=== PATIENT | female | born 1970 | race Caucasian/White ===

== ENCOUNTER → 2016-11-08 | Outpatient (CLI) | payer BC ==
[2016-11-08 08:40] LABS: HEMATOCRIT 44.1 % (36.0-47.0); HEMOGLOBIN 14.7 g/dL (12.0-15.5); MEAN CORPUSCULAR HEMOGLOBIN 28.2 pg (27.0-33.4); MEAN CORPUSCULAR HGB CONC 33.4 g/dL (32.0-36.0); MEAN CORPUSCULAR VOLUME 84 fl (80-97); RED BLOOD COUNT 5.23 10^6/uL (3.72-5.28); RED CELL DISTRIBUTION WIDTH 12.5 % (11.5-14.0); WHITE BLOOD COUNT 7.4 10^3/uL (4.0-10.5)
[2016-11-08 09:24] LABS: ALANINE AMINOTRANSFERASE 38 U/L (9-52); ALBUMIN 4.6 g/dL (3.5-5.0); ALKALINE PHOSPHATASE 76 U/L (38-126); ANION GAP 11 (5-19); ASPARTATE AMINO TRANSFERASE 25 U/L (14-36); BILIRUBIN,TOTAL 1.3 mg/dL (0.2-1.3); BLOOD UREA NITROGEN 14 mg/dL (7-20); CARBON DIOXIDE 27 mmol/L (22-30); CHLORIDE 104 mmol/L (98-107); CHOLESTEROL 241.75 mg/dL (0-200); CREATININE RESULT 0.79 mg/dL (0.52-1.25); Direct HDL 40 mg/dL (>40); GLUCOSE 99 mg/dL (75-110); POTASSIUM 4.6 mmol/L (3.6-5.0); SODIUM 142.4 mmol/L (137-145); TOTAL PROTEIN 7.8 g/dL (6.3-8.2); TRIGLYCERIDES 179 mg/dL (<150)
[2016-11-08 09:35] LABS: DIRECT LDL 156 mg/dL (<100)
[2016-11-08 09:39] LABS: VLDL CHOLESTEROL 35.8 mg/dL (10-31)
[2016-11-08 09:59] LABS: THYROID STIMULATING HORMONE 2.35 uIU/mL (0.47-4.68)
[2016-11-09 07:21] LABS: VITAMIN D 25-HYDROXY 16.2 ng/mL (30.0-100.0)
[2016-11-09 13:13] LABS: INSULIN 24.2 uIU/mL (2.6-24.9)
== END ==
LOC: LAB 08:19
PROVIDERS: ATTEND Nurse Practitioner Community Health
DX: Z00.00 Encounter for general adult medical examination without abnormal findings (principal); E55.9 Vitamin D deficiency, unspecified; R53.83 Other fatigue; E78.5 Hyperlipidemia, unspecified; R63.5 Abnormal weight gain
CPT/HCPCS: 36415; 80053; 80061; 82306; 83036; 83525; 84439; 84443; 85027

== ENCOUNTER → 2017-01-21 | Outpatient (CLI) | payer BC | LOC: RAD 11:11 | PROVIDERS: ATTEND Podiatrist Foot & Ankle Surgery | DX: M20.12 Hallux valgus (acquired), left foot (principal) ==

== ENCOUNTER → 2017-02-26 | Outpatient (CLI) | payer BC | LOC: LAB 12:42 | PROVIDERS: ATTEND Podiatrist Foot & Ankle Surgery | DX: E55.9 Vitamin D deficiency, unspecified (principal) | CPT/HCPCS: 36415; 82306 ==

== ENCOUNTER 2017-03-28 09:47 | Day surgery (SDC) | payer BC ==
[2017-03-27 17:17] LABS: APPEARANCE,URINE SLIGHTLY-CLOUDY; BILIRUBIN,URINE NEGATIVE (NEGATIVE); GLUCOSE, URINE NEGATIVE (NEGATIVE); KETONES,URINE NEGATIVE (NEGATIVE); LEUKOCYTE ESTERASE,URINE NEGATIVE (NEGATIVE); NITRITE,URINE NEGATIVE (NEGATIVE); PROTEIN,URINE NEGATIVE (NEGATIVE); URINE SPECIFIC GRAVITY 1.013; UROBILINOGEN,URINE NEGATIVE mg/dL (<2.0)
[2017-03-27 17:25] LABS: ABSOLUTE BASOPHILS # (AUTO) 0.1 10^3/uL (0.0-0.2); ABSOLUTE EOSINOPHILS # (AUTO) 0.2 10^3/uL (0.0-0.6); ABSOLUTE MONOCYTES (AUTO) 0.8 10^3/uL (0.1-1.4); ABSOLUTE NEUT (AUTO) 5.2 10^3/uL (1.7-8.2); EOSINOPHILS % (AUTO) 2.3 % (0-6); HEMATOCRIT 45.8 % (36.0-47.0); HEMOGLOBIN 15.3 g/dL (12.0-15.5); HGB HCT DIFFERENCE 0.1; LYMPHOCYTES % (AUTO) 38.8 % (13-45); MEAN CORPUSCULAR HGB CONC 33.4 g/dL (32.0-36.0); MEAN CORPUSCULAR VOLUME 84 fl (80-97); MONOCYTES % (AUTO) 7.4 % (3-13); RED BLOOD COUNT 5.47 10^6/uL (3.72-5.28); RED CELL DISTRIBUTION WIDTH 12.7 % (11.5-14.0); SEGMENTED NEUTROPHILS % (AUTO) 50.5 % (42-78); WHITE BLOOD COUNT 10.3 10^3/uL (4.0-10.5)
[~2017-03-28 09:47] MED LIST: CEFAZOLIN 1 GM/D5W RTU 1 GM/50 ML RTUPB IV PRN; RINGERS SOLUTION,LACTATED 1,000 ML IV PRN
[2017-03-28] MEDS ORDERED: FENTANYL CITRATE INJ/PF 100 MCG/2 ML AMPUL ONE (10:23)
[2017-03-28] MEDS ORDERED: MIDAZOLAM 2 MG/2 ML INJ ONE ×2 (10:23)
[2017-03-28] MEDS ORDERED: PROPOFOL INJ 200 MG/20 ML VIAL IV ONE (10:24)
[2017-03-28] MEDS ORDERED: LIDOCAINE 2% INJ (20 MG/ML) 20 ML MDV ONE (10:27)
[2017-03-28] MEDS ORDERED: BUPIVACAINE HCL 0.5 % INJ/PF 30 ML SDV ONE (10:28)
[2017-03-28] MEDS ORDERED: ONDANSETRON HCL INJ/PF 4 MG/2 ML SDV ONE (11:21)
[2017-03-28] MEDS ORDERED: DEXAMETHASONE SOD PHOSPHATE INJ 4 MG/1 ML VIAL ONE (11:21)
[2017-03-28] MEDS ORDERED: SUCCINYLCHOLINE CHLORIDE INJ 200 MG/10 ML VIAL ONE (13:06)
[2017-03-28] MEDS ORDERED: METOCLOPRAMIDE HCL INJ/PF 10 MG/2 ML SDV ONE (13:06)
[2017-03-28] MEDS ORDERED: KETOROLAC TROMETHAMINE 60 MG/2 ML SDV ONE (13:21)
--- NOTE | 2017-03-28 16:37 | RADIOLOGY REPORT (SQ) ---
EXAM DESCRIPTION: FOOT LEFT 2 VIEWS COMPLETED DATE/TIME: 03/28/2017 2:21 pm REASON FOR STUDY: LT FOOT OPEN WEDGE BASE OF 1ST M20.12 HALLUX VALGUS (ACQUIRED), LEFT FOOT COMPARISON: None. FLUOROSCOPY TIME: 0.03 seconds 2 images saved to PACS. TECHNIQUE: Intra-operative images acquired during surgical procedure to evaluate progress. NUMBER OF IMAGES: 2 0 LIMITATIONS: None. FINDINGS: Fluoroscopic images were obtained during osteotomy related to a hallux valgus. An orthope dic hardware is identified at the level of the 1st metatarsal. IMPRESSION: IMAGE(S) OBTAINED DURING PROCEDURE. COMMENT: Quality ID [id number]: Final reports for procedures using fluoroscopy that document radiation exp osure indices, or exposure time and number of fluorographic images (if radiation exposure indices are not available) Please consult full operative report of the attending physician for description of the procedure. TECHNICAL DOCUMENTATION: JOB ID: [id number] [email or web address] All Rights Reserved
--- NOTE | 2017-03-28 16:38 | RADIOLOGY REPORT (SQ) ---
EXAM DESCRIPTION: NO CHG FLUORO COMPLETE DATE/TIME: 03/28/2017 2:21 pm REASON FOR STUDY: LT FOOT OPEN WEDGE BASE OF 1ST M20.12 HALLUX VALGUS (ACQUIRED), LEFT FOOT FINDINGS: Please see combined report for performance of procedure and radiologic supervision and int erpretation. IMPRESSION: Please see combined report for performance of procedure and radiologic supervision and i nterpretation.
--- NOTE | 2017-04-30 15:45 | [facility] OPERATIVE REPORT E ---
[facility] Operative Report NAME: JACQUIE MATT AGE: 46Y DATE OF SURGERY: 03/28/2017 ROOM: PREOPERATIVE DIAGNOSIS: Hallux abductovalgus deformity right foot. POSTOPERATIVE DIAGNOSIS: Hallux abductovalgus deformity right foot. OPERATION: 1. Open wedge osteotomy base first metatarsal with internal fixation. 2. Capsulorrhaphy first metatarsophalangeal joint capsule. 3. Vxavf-tyf-fpiy posterior splint. SURGEON: KRISTI BALDERAS D.P.M. INTRAOPERATIVE FINDINGS: Indicated hypertrophy of the medial ligaments of head base of the first metatarsal with increased angulation between the first and second metatarsals of greater than 15 degrees. The articular surfaces of the head of the first metatarsal and the base of the proximal phalanx were relatively without any signs of protruding changes. This patient also had mild interphalangeal deformity with the distal phalanx being deviated in valgus direction which have created a more visually exaggerated deformity at the level of the first metatarsophalangeal joint. Intraoperative findings were confirmed clinically and radiographically. PROCEDURE: With the patient lying in a dorsally recumbent position, left foot and leg were prepped and draped in the usual standard sterile orthopedic manner after the local anesthesia was administered, which was a total ankle block. After anesthetic effect was accomplished, the left leg was elevated for approximately 2 minutes of time and the left ankle pneumatic tourniquet was inflated up to 250 mmHg after the blood was exsanguinated from the left foot. The left leg was brought to the level of the table. Attention was directed right over the first metatarsophalangeal joint. A curvilinear incision was placed right over the joint. The initial incision was deepened. The superficial and the subcutaneous tissues were dissected with blunt and sharp dissection. All bleeders were ligated. All vital structures were identified and protected from surgical trauma. At this point, the capsulotomy was performed which was capital inverted L-capsulotomy with the long arm of the capsulotomy being placed medial and adjacent to extensor hallucis longus. The small arm right over the joint in a medial inferior direction. Capsule and periosteal structures were dissected down and the head was brought into the surgical field. The hypertrophic portion was resected and the head was normal anatomical configuration. At this point, the healthy appearance of the cartilage was visualized. The incision was extended all the way down to the base of the first metatarsal. Again, the incision was midline, the deep and superficial subcutaneous tissues were dissected via blunt and sharp dissection. All bleeders were identified and ligated, and all vital fractures again well protected for surgical trauma. Next, a periosteal incision was performed. Periosteal structures fractures were dissected off bone and the base of the first metatarsal was visualized. At this point, the level of the first metatarsal base within cuneiform joint was mapped and the measurements were placed on the bone to establish the obliquity of the osteotomy. The measurements were 1.5 cm of the medial cortex from the joint and 0.5 cm on the lateral cortex from the joint. The were connected and that established obliquity of about 45 degrees for the osteotomy which would be performed at this level. Next, the medial two thirds of the diameter of the base were also established, two thirds from the medial cortex, and a guiding wire was placed from plantar direction. All the preparatory work was done by this gun and the osteotomy was performed next, which was from dorsal plantar direction with a complete osteotomy. After the completion of the osteotomy, started to open the osteotomy in order to correct the of the first metatarsal. Several attempts were made, we used a bone embedded software development engineer. The spreading of the osteotomy continued until the 5 mm wedge plate was very successfully placed into the osteotomy in order to keep it open. The wedge plate was stabilized into the bone and the deformity was evaluated. There was sufficient derotation of the first metatarsal to bring the angulation between the first and second metatarsals about normal 8 degrees. After that, the plate was fixated with screws. All holes were prescrewed with 2.0 mm diameter drill and all screws were 3.0 in diameter. There was a combination of locking and non-locking screws. The lateral proximal hole of the plate to the wedge osteotomy was fixated with 26 mm in length screw which was a locking screw. The medial proximal hole of the plate to the wedge was fixated with 22 mm in length non-locking screw. The very proximal of distal hole to the wedge was fixated with 14 mm locking screw and the very large distal hole was fixated with 14 mm non-locking screw. Again, final evaluation of the osteotomy was performed which was extremely satisfactory. X-rays were obtained to also document the correction and to visualize the fixation, again the fixation was very acceptable and the screws with proper length. At this point, the surgical area was irrigated with copious amount of sterile saline solution. Decision was made not to take the hallux since the joint fell into normal alignment. The left pneumatic tourniquet was deflated at this time. Circulation to the left foot returned to normal immediately as the normal digital color and temperature became apparent. The next step was packing the open wedge osteotomy with Vitoss synthetic bone graft. We used 1.2 cc of Vitoss to pack the open wedge osteotomy. Finally, the capsulorrhaphy was performed. The redundant capsule was removed which was created after correcting the deformity, and the capsular structures were closed with 2-0 Vicryl at this point. After that, periosteum over the base of the first metatarsal was closed with Vicryl, the subcutaneous tissues from deep to superficial were closed with 3 Vicryl, the skin edges were coapted and closed with 4-0 Nylon using continuous interlock stitch. Betadine compression dressing was applied around the surgical area, and this was followed with [id number] posterior splint. The patient tolerated all procedures well in the operating room with stable vital signs and in good condition. The patient was taken to the recovery room well conscious and oriented. Immediate postoperative recovery was also very uneventful. The patient was sent home with instructions for postoperative care and pain medicine and antibiotics were also prescribed to the patient, and the patient was instructed how to administer the medications. The patient was allowed to return to normal dietary habit and to start taking all of her preoperative medications. Follow-up appointment was set in 72 hours in my office. The patient was also given strict instructions to communicate with me in case there is any unusual occurrence . DICTATING PHYSICIAN: KRISTI BALDERAS D.P.M. [id number] PHY#: [id number] ID: [id number] JOB#: [id number] ACCT: [id number] cc:KRISTI BALDERAS D.P.M. >
== END 2017-03-28 15:22 | disposition home or self-care (01) ==
LOC: SC 09:47
PROVIDERS: ATTEND Podiatrist Foot & Ankle Surgery
PROC: 0SQM0ZZ Repair Right Metatarsal-Phalangeal Joint, Open Approach (ICD-10-PCS; 2017-03-28)
PROC: 0QSN04Z Reposition Right Metatarsal with Internal Fixation Device, Open Approach (ICD-10-PCS; principal; 2017-03-28 11:00)
DX: M20.12 Hallux valgus (acquired), left foot (principal); K21.9 Gastro-esophageal reflux disease without esophagitis; Z79.899 Other long term (current) drug therapy
CPT/HCPCS: 36415; 85025; 81001; 73620; 28296; 28899; C1713; J2250; J3490; J0690; J1100; J1885; J3010; J2765; J0330; J2405; J2704; 01480

== ENCOUNTER → 2017-04-30 | Outpatient (CLI) | payer BC ==
--- NOTE | 2017-05-01 09:47 | RADIOLOGY REPORT (SQ) ---
EXAM DESCRIPTION: FOOT LEFT COMPLETE COMPLETED DATE/TIME: 04/30/2017 5:06 pm REASON FOR STUDY: POST-OP COMPARISON: 03/28/2017, 01/21/2017 NUMBER OF VIEWS: Three views. TECHNIQUE: Nonweightbearing AP, lateral and oblique radiographic images acquired of the left foot. LIMITATIONS: None. FINDINGS: MINERALIZATION: Normal. BONES: There is a osteotomy along the proximal diaphysis, left 1st metatarsal. There is some new bon e formation and sclerosis at the osteotomy site. Incomplete healing, with medial edge osteotomy stil l visible on the AP view. Subtle lucency around the distal to anchoring screws on the oblique view worrisome for loosening. 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 JOINTS: Good alignment at the 1st metatarsophalangeal joint. Healed bunionectomy, medial head 1st me tatarsal. SOFT TISSUES: Mild diffuse forefoot soft tissue swelling. No foreign body. OTHER: No other significant finding. IMPRESSION: Incompletely healed 1st metatarsal osteotomy. Subtle lucencies along the distal anchoring screws at the osteotomy, could indicate loosening. TECHNICAL DOCUMENTATION: JOB ID: [id number] [employer] All Rights Reserved
== END ==
LOC: RAD 16:29
PROVIDERS: ATTEND Podiatrist Foot & Ankle Surgery
DX: Z98.890 Other specified postprocedural states (principal)

== ENCOUNTER → 2017-06-06 | Outpatient (CLI) | payer BC ==
--- NOTE | 2017-06-06 17:00 | XCELERA REPORT ---
[address] [address] Lower Extremity Venous Evaluation Name: JACQUIE MATT Age: 46 yrs Gender: Female : 1970 Patient Status: Outpatient Patient Location: Study Date: 06/06/2017 02:38 PM Procedure: Color flow and duplex imaging of the veins of the left lower extremity as well as the right Common Femoral vein. Reason For Study: LLE PAIN Ordering Physician: KRISTI BALDERAS Performed By: Terry Dena Right Sided Venous Evaluation The right common femoral vein is fully compressible. Spontaneous and phasic flow is present in the right common femoral vein. Left Sided Venous Evaluation Normal vessel filling wall to wall, compression and augmentation as well as Colour flow down to the infrageniculate veins. Interpretation Summary No duplex evidence of DVT or obstruction in the left lower extremity nor in the right Common Femoral vein. : KRISTI BALDERAS > Curtis Barron
== END ==
LOC: SP 14:03
PROVIDERS: ATTEND Podiatrist Foot & Ankle Surgery
DX: M79.605 Pain in left leg (principal); M79.89 Other specified soft tissue disorders
CPT/HCPCS: 93971

== ENCOUNTER → 2017-06-12 | Outpatient (CLI) | payer BC ==
--- NOTE | 2017-06-12 12:39 | RADIOLOGY REPORT (SQ) ---
EXAM DESCRIPTION: FOOT LEFT COMPLETE COMPLETED DATE/TIME: 06/12/2017 12:24 pm REASON FOR STUDY: POST OP [id number] OTHER SPECIFIED POSTPROCEDURAL STATES COMPARISON: 04/30/2017 NUMBER OF VIEWS: Three views. TECHNIQUE: AP, lateral and oblique radiographic images acquired of the left foot. LIMITATIONS: None. FINDINGS: MINERALIZATION: There is mild diffuse osteopenia this is new from prior study. BONES: There are postsurgical changes in the 1st proximal metatarsals. The osteotomy site remains bu t the cortical break has healed. Lucency previously described at the distal anchoring screws is impr ke. JOINTS: No effusions. SOFT TISSUES: No soft tissue swelling. No foreign body. OTHER: No other significant finding. IMPRESSION: Postsurgical changes. Cortical fracture at the osteotomy site has healed. Lucency prev iously described at the distal anchoring screws is improved. There is osteopenia most likely seconda ry to inactivity or incomplete weight-bearing. TECHNICAL DOCUMENTATION: JOB ID: [id number] [employer]- All Rights Reserved
== END ==
LOC: RAD 11:59
PROVIDERS: ATTEND Podiatrist Foot & Ankle Surgery
DX: Z98.890 Other specified postprocedural states (principal)

== ENCOUNTER → 2017-09-19 | Outpatient (CLI) | payer BC ==
[2017-09-19 08:04] LABS: HEMATOCRIT 45.2 % (36.0-47.0); HEMOGLOBIN 15.2 g/dL (12.0-15.5); MEAN CORPUSCULAR HEMOGLOBIN 28.2 pg (27.0-33.4); MEAN CORPUSCULAR HGB CONC 33.7 g/dL (32.0-36.0); MEAN CORPUSCULAR VOLUME 84 fl (80-97); PLATELET COUNT 336 10^3/uL (150-450); RED CELL DISTRIBUTION WIDTH 12.5 % (11.5-14.0); WHITE BLOOD COUNT 8.3 10^3/uL (4.0-10.5)
[2017-09-19 08:28] LABS: ALANINE AMINOTRANSFERASE 26 U/L (9-52); ALBUMIN 4.8 g/dL (3.5-5.0); ALKALINE PHOSPHATASE 79 U/L (38-126); ANION GAP 11 (5-19); ASPARTATE AMINO TRANSFERASE 22 U/L (14-36); BILIRUBIN,DIRECT 0.2 mg/dL (0.0-0.4); BILIRUBIN,TOTAL 1.1 mg/dL (0.2-1.3); BLOOD UREA NITROGEN 14 mg/dL (7-20); CARBON DIOXIDE 25 mmol/L (22-30); CHLORIDE 105 mmol/L (98-107); CHOLESTEROL 268.17 mg/dL (0-200); GLUCOSE 91 mg/dL (75-110); POTASSIUM 4.4 mmol/L (3.6-5.0); TOTAL PROTEIN 7.9 g/dL (6.3-8.2); TRIGLYCERIDES 140 mg/dL (<150)
[2017-09-19 08:40] LABS: DIRECT LDL 186 mg/dL (<100)
[2017-09-21 06:14] LABS: INSULIN 14.8 uIU/mL (2.6-24.9); VITAMIN D 25-HYDROXY 35.3 ng/mL (30.0-100.0)
== END ==
LOC: LAB 07:48
DX: E78.5 Hyperlipidemia, unspecified (principal); E55.9 Vitamin D deficiency, unspecified; R53.83 Other fatigue; R63.5 Abnormal weight gain
CPT/HCPCS: 36415; 80053; 80061; 82306; 83036; 83525; 84443; 85027

== ENCOUNTER → 2020-04-02 | Outpatient (CLI) | payer BC ==
[2020-04-02 07:06] LABS: HEMOGLOBIN 15.5 g/dL (12.0-15.5); MEAN CORPUSCULAR HEMOGLOBIN 28.9 pg (27.0-33.4); MEAN CORPUSCULAR HGB CONC 34.4 g/dL (32.0-36.0); MEAN CORPUSCULAR VOLUME 84 fl (80-97); PLATELET COUNT 339 10^3/uL (150-450); RED BLOOD COUNT 5.37 10^6/uL (3.72-5.28); RED CELL DISTRIBUTION WIDTH 12.2 % (11.5-14.0); WHITE BLOOD COUNT 7.1 10^3/uL (4.0-10.5)
[2020-04-02 07:21] LABS: ALBUMIN 4.6 g/dL (3.5-5.0); ALKALINE PHOSPHATASE 89 U/L (38-126); ANION GAP 6 (5-19); ASPARTATE AMINO TRANSFERASE 25 U/L (14-36); BILIRUBIN,DIRECT 0.1 mg/dL (0.0-0.4); BILIRUBIN,TOTAL 1.3 mg/dL (0.2-1.3); BLOOD UREA NITROGEN 14 mg/dL (7-20); CALCIUM 9.5 mg/dL (8.4-10.2); CARBON DIOXIDE 27 mmol/L (22-30); CHLORIDE 105 mmol/L (98-107); CHOLESTEROL 247.28 mg/dL (0-200); GLUCOSE 102 mg/dL (75-110); POTASSIUM 4.5 mmol/L (3.6-5.0); TOTAL PROTEIN 7.9 g/dL (6.3-8.2); TRIGLYCERIDES 175 mg/dL (<150)
[2020-04-02 07:32] LABS: DIRECT LDL 166 mg/dL (<100)
== END ==
LOC: LAB 06:43
PROVIDERS: ATTEND Emergency Medicine
DX: E78.5 Hyperlipidemia, unspecified (principal); R53.83 Other fatigue; E55.9 Vitamin D deficiency, unspecified
CPT/HCPCS: 36415; 80053; 80061; 82306; 85027